=== PATIENT | female | born 1960 | race Two or more races ===

== ENCOUNTER 2018-07-15 11:35 | Outpatient (CLI) | payer BC | END 2018-07-15 23:59 | disposition home or self-care (01) | LOC: WOU 11:35 | PROVIDERS: ATTEND Surgery | DX: C50.212 Malignant neoplasm of upper-inner quadrant of left female breast (principal); I10 Essential (primary) hypertension; Z79.899 Other long term (current) drug therapy; Z80.8 Family history of malignant neoplasm of other organs or systems; E78.5 Hyperlipidemia, unspecified; Z17.0 Estrogen receptor positive status [ER+] | CPT/HCPCS: G0463 ==

== ENCOUNTER 2018-07-21 12:40 | Outpatient (CLI) | payer BC ==
[2018-07-22] MEDS ORDERED: LISI1TAB9 PO (14:17)
== END 2018-07-21 23:59 | disposition home or self-care (01) ==
LOC: WOU 12:40
PROVIDERS: ATTEND Surgery
DX: C50.212 Malignant neoplasm of upper-inner quadrant of left female breast (principal); I10 Essential (primary) hypertension; Z79.899 Other long term (current) drug therapy
CPT/HCPCS: G0463

== ENCOUNTER 2018-07-21 13:26 | Outpatient (CLI) | payer BC ==
[2018-07-22] MEDS ORDERED: HYDROMORPHONE INJ 2 MG/ML DISP.SYRIN ONE (12:56)
[2018-07-22] MEDS ORDERED: LISI1TAB9 PO (14:17)
== END 2018-07-21 23:59 | disposition home or self-care (01) ==
LOC: RAD 13:26
PROVIDERS: ATTEND Surgery
DX: C50.912 Malignant neoplasm of unspecified site of left female breast (principal)
CPT/HCPCS: 78195; A9541; J1170

== ENCOUNTER 2018-07-22 06:03 | Inpatient (IN) | payer BC ==
[~2018-07-22] VITALS: Ht 170.2 cm; Wt 127.0 kg
[2018-07-22] MEDS ORDERED: ANESTHESIA TRAY IN PYXIS 1 EA TRAY MC ONE (07:03)
[2018-07-22] MEDS ORDERED: MIDAZOLAM HCL 2 MG/2ML VIAL ONE (07:07)
[2018-07-22] MEDS ORDERED: SUCCINYLCHOLINE CHLORIDE 20 MG/ML VIAL ONE (07:07)
[2018-07-22] MEDS ORDERED: HYDROMORPHONE INJ 2 MG/ML DISP.SYRIN ONE (07:07)
[2018-07-22] MEDS ORDERED: ROCURONIUM BROMIDE 50 MG/5 ML ONE (07:08)
[2018-07-22] MEDS ORDERED: METHYLENE BLUE 10 ML VIAL ONE (07:09)
[2018-07-22] MEDS ORDERED: GENTAMICIN 80 MG/2 ML VIAL ONE (07:43)
[2018-07-22] MEDS ORDERED: CEFAZOLIN 2 GM ONE (07:43)
[2018-07-22] MEDS ORDERED: BACITRACIN 50000 UNITS/VIAL ONE (07:44)
[2018-07-22] MEDS ORDERED: NITROGLYCERIN PACKET 1 GM PACKET ONE ×2 (11:47)
[2018-07-22] MEDS ORDERED: LISI1TAB9 PO (14:17)
[2018-07-22 14:30] VITALS: BP 109/64
--- NOTE | 2018-07-22 14:30 | NUR ---
received pt from OR awake a/o x4 , able to make needs known. Family at bedside. VS are stable and within normal range , saturation 98% on O2 2L via NC. Patient s/p B/L mastectomy with [address] draining well. Received order and will put it in.
[2018-07-22] MEDS ORDERED: IV D5/0.45 NACL W/20 MEQ KCL 1L IV PRN ×4 (15:00→17:00)
[2018-07-22] MEDS: MORPHINE SULFATE INJ 2 MG/ML DISP.SYRIN IV PRN ×3 (15:09→20:06)
[2018-07-22 16:34] VITALS: BP 109/60
[2018-07-22] MEDS: oxyCODONE/APAP (5/325 MG) 1 UDTAB TABLET PO PRN ×2 (18:14→22:26)
--- NOTE | 2018-07-22 19:30 | NUR ---
RECEIVED PATIENT IN BED AWAKE. AO X 3, ABLE TO MAKE NEEDS KNOWN. NO ACUTE DISTRESS NOTED. MONITORED FOR PAIN. IV SITE PATENT, INTACT; IVF INFUSING ORDERED. BILATERAL MASTECTOMY INCISIONS INTACT WITH 3 ADEN DRAINS INTACT; DRAINING SANGUINOUS FLUID. SAFETY REMINDERS GIVEN. ON LOW BED WITH BILATERAL UPPER SIDE RAILS UP. CALL MARSHALL WITHIN EASY REACH. WILL CONTINUE TO MONITOR. Addendum: 07/23/18 at 0403 by CY ODONNELL RN MCKOY CATH PATENT, INTACT; DRAINING CLEAR GREEN URINE.
[2018-07-22 20:00] VITALS: BP 106/55
[2018-07-22] MEDS: ANCEF 1 GM/50 ML D5W IV SCH ×2 (20:28)
[2018-07-23] MEDS: MORPHINE SULFATE INJ 2 MG/ML DISP.SYRIN IV PRN ×4 (01:52→19:53)
[2018-07-23] MEDS: ANCEF 1 GM/50 ML D5W IV SCH ×6 (04:20→19:57)
--- NOTE | 2018-07-23 06:00 | NUR ---
PATIENT ASLEEP, EASILY AROUSABLE. RESPIRATIONS EVEN. NO SIGNS OF PAIN NOTED. DUE MEDS GIVEN WITH NO ASE NOTED. IVF INFUSING ORDERED. NEEDS ATTENDED. KEPT CLEAN, DRY AND COMFORTABLE. WILL GIVE REPORT TO DAY SHIFT FOR CONTINUITY OF CARE.
[2018-07-23] MEDS: oxyCODONE/APAP (5/325 MG) 1 UDTAB TABLET PO PRN ×3 (07:15→20:37)
[2018-07-23 08:00] VITALS: BP 109/62
[2018-07-23] MEDS ORDERED: Medication Not On Formulary EA (Lisinopril/Hydrochlorothiazide (Lisinopril-Hctz 10-12.5 PO SCH (09:00)
[2018-07-23] MEDS: HYDROCHLOROTHIAZIDE 25 MG TABLET PO SCH (09:00)
[2018-07-23] MEDS: DOCUSATE SODIUM 100 MG CAPSULE PO SCH ×2 (09:04→18:04)
[2018-07-23] MEDS: LISINOPRIL (10MG) 10 MG TABLET PO SCH (09:04)
--- NOTE | 2018-07-23 10:00 | NUR ---
ADEN OUTPUT 175 ML FROM ALL 3
--- NOTE | 2018-07-23 14:30 | NUR ---
A NEW IV LINE TO THE RIGHT HAND G22 , FLUSHING WELL. RIGHT WRIST 20 REMOVED DUE TO LEAKING
[2018-07-23 16:00] VITALS: BP 107/69
--- NOTE | 2018-07-23 18:57 | NUR ---
PATIENT WALKING IN HALLWAY WITH ASSISTANCE. TOLERATES PAIN AT THIS TIME .
--- NOTE | 2018-07-23 19:41 | NUR ---
patient A/Ox4 , on room air saturating well. VS are stable , no complain of pain at this time. All needs attended, pain med given. Family at bedside. Will endorse to next shift for BREANNE.
[2018-07-23 20:00] VITALS: BP 122/70
--- NOTE | 2018-07-23 20:00 | NUR ---
MS RN NOTES RECEIVED PATIENT AWAKE IN BED WITH NO DISTRESS NOTED. CALL LIGHT WITHIN REACH. FAMILY AT BEDSIDE. ADEN DRAINS INTACT, PATENT, AND DRAINED 125ML SEROSANGUINEOUS OUTPUT. INCISIONS UNDER BILATERAL BREAST INTACT WITH NO ACTIVE BLEEDING NOTED. NO FURTHER C/O PAIN OR DISCOMFORT. PERIPHERAL LINE INTACT AND PATENT. BED IN LOW LOCK SETTING. ROOM FREE OF CLUTTER AND BELONGINGS KEPT NEAR BEDSIDE. WILL CONTINUE TO MONITOR.
[2018-07-24] MEDS: MORPHINE SULFATE INJ 2 MG/ML DISP.SYRIN IV PRN (00:37)
[2018-07-24] MEDS: ANCEF 1 GM/50 ML D5W IV SCH ×2 (04:38)
--- NOTE | 2018-07-24 06:24 | NUR ---
MS RN NOTES RECEIVED PATIENT AWAKE IN BED WITH NO DISTRESS NOTED. CALL LIGHT WITHIN REACH. AT BEDSIDE. ALL DUE MEDS GIVEN ORDERED WITH NO ASE NOTED. NO FURTHER C/O PAIN OR DISCOMFORT. INCISIONS UNDER BILATERAL BREAST INTACT WITH NO ACTIVE BLEEDING NOTED. ADEN DRAINS INTACT, PATENT, AND DRAINED ANOTHER 125ML SEROSANGUINEOUS OUTPUT. PERIPHERAL LINE INTACT AND PATENT. PATIENT NOTED WITH X1 SMALL AMOUNT SOFT FORMED BROWN BM. BED IN LOW LOCK SETTING. ROOM FREE OF CLUTTER AND BELONGINGS KEPT NEAR BEDSIDE. WILL CONTINUE TO MONITOR.
--- NOTE | 2018-07-24 07:15 | NUR ---
MS/RN OPENING NOTES THE PATIENT IS RECEIVED SITTING IN A CHAIR. ALERT AND ORIENTED X4. IN ROOM AIR AND DENIES SOB. RESPIRATION REGULAR AND UNLABORED. DENIES PAIN AT THIS TIME. BILAERAL BREAST INCISION WITH NO SIGNS OF INFECTION AND NO BLEEDING OR DISCHARGE. ADEN DRAINS INTACT, PATENT AND DRAINING SEROSANGUINEOUS FLUID.RFA G 22 PATENT AND SALINE LOCKED. CALL LIGHT WITHIN REACH. IN THE ROOM. WILL CONTINUE TO MONITOR.
[2018-07-24 08:00] VITALS: BP 135/70
[2018-07-24] MEDS: DOCUSATE SODIUM 100 MG CAPSULE PO SCH (08:08)
[2018-07-24 08:09] VITALS: BP 135/70
[2018-07-24] MEDS: LISINOPRIL (10MG) 10 MG TABLET PO SCH (08:09)
[2018-07-24] MEDS: HYDROCHLOROTHIAZIDE 25 MG TABLET PO SCH (08:09)
[2018-07-24] MEDS: oxyCODONE/APAP (5/325 MG) 1 UDTAB TABLET PO PRN (08:10)
--- NOTE | 2018-07-24 09:11 | NUR ---
MS/RN NOTE THE PATIENT ALERT AND ORIENTED X4. DENIES PAIN. RESPIRATION REGULAR AND UNLABORED. PATIENT IN ROOM AIR AND OXYGEN SATURATION IS AT 98%. DISCHARGE EDUCATION IS PROVIDED TO THE PATIENT AND SHE VERBALIZED UNDERSTANDING. PRESCRIPTION HANDED TO THE PATIENT. THE PATIENT IS OFFERED MD CONTACT, HOWEVER, THE PATIENT STATED THAT SHE ALREADY HAS MD INFORMATION. PATIENT IS IN STABLE CONDITION AND GETTING PICKED UP BY .
== END 2018-07-24 09:59 | disposition home or self-care (01) | DRG 580 ==
LOC: DS 06:03 → MEDSG2 14:12
PROVIDERS: ADMIT Surgery; ATTEND Surgery
PROC: 07B60ZZ Excision of Left Axillary Lymphatic, Open Approach (ICD-10-PCS; principal; 2018-07-22)
PROC: 0HTV0ZZ Resection of Bilateral Breast, Open Approach (ICD-10-PCS; principal; 2018-07-22)
PROC: 0HBX0ZX Excision of Left Nipple, Open Approach, Diagnostic (ICD-10-PCS; principal; 2018-07-22)
PROC: 0HBW0ZX Excision of Right Nipple, Open Approach, Diagnostic (ICD-10-PCS; principal; 2018-07-22)
PROC: 0HB5XZX Excision of Chest Skin, External Approach, Diagnostic (ICD-10-PCS; principal; 2018-07-22)
PROC: 0HHV0NZ Insertion of Tissue Expander into Bilateral Breast, Open Approach (ICD-10-PCS; principal; 2018-07-22)
DX: D05.12 Intraductal carcinoma in situ of left breast (principal); C77.3 Secondary and unspecified malignant neoplasm of axilla and upper limb lymph nodes; Z17.0 Estrogen receptor positive status [ER+]; E78.5 Hyperlipidemia, unspecified; I10 Essential (primary) hypertension
CPT/HCPCS: 87081-TC; 88305-TC; 88307-TC; 88309-TC; 88331-TC; 88342; G0378; J0330; J0690; J1100; J1170; J1580; J2250; J2270; J2405; J2704; J2765; J3480; J3490; J7060; Q9968

== ENCOUNTER 2018-07-29 10:50 | Outpatient (CLI) | payer BC ==
[~2018-07-29 10:50] MED LIST: LISI1TAB9 PO
== END 2018-07-29 23:59 | disposition home or self-care (01) ==
LOC: WOU 10:50
PROVIDERS: ATTEND Surgery
DX: Z48.3 Aftercare following surgery for neoplasm (principal); C50.812 Malignant neoplasm of overlapping sites of left female breast; C77.3 Secondary and unspecified malignant neoplasm of axilla and upper limb lymph nodes; Z17.0 Estrogen receptor positive status [ER+]; I10 Essential (primary) hypertension; E78.5 Hyperlipidemia, unspecified; Z80.9 Family history of malignant neoplasm, unspecified
CPT/HCPCS: 99214; A6402; G0463

== ENCOUNTER 2018-08-05 11:15 | Outpatient (CLI) ==
[2018-08-05 14:47] LABS: BASOPHILS # (AUTO) 0.1 /CMM (0.0-0.2); BASOPHILS % (AUTO) 0.7 % (0.0-2.0); EOSINOPHILS % (AUTO) 2.8 % (0.0-6.0); HEMATOCRIT 37 % (33-45); HEMOGLOBIN 12.4 g/dL (11.5-14.8); LYMPHOCYTES # (AUTO) 2.6 /CMM (0.8-4.8); LYMPHOCYTES % (AUTO) 27.2 % (20.0-44.0); MEAN CORPUSCULAR HGB CONC 34 g/dl (31.0-36.0); MEAN CORPUSCULAR VOLUME 84 fL (82-100); MONOCYTES # (AUTO) 0.6 /CMM (0.1-1.30); MONOCYTES % (AUTO) 6.8 % (2.0-12.0); NEUTROPHILS # (AUTO) 5.9 /CMM (1.8-8.9); NEUTROPHILS % (AUTO) 62.5 % (43.0-81.0); PLATELET COUNT (AUTO) 420 /CMM (150-450); RED BLOOD CELL COUNT(AUTO) 4.36 MIL/uL (4.0-5.2); WHITE BLOOD COUNT (AUTO) 9.4 K/uL (4.3-11.0)
[2018-08-05 15:01] LABS: CALCIUM, SERUM 8.7 mg/dL (8.5-10.1); CREATININE 0.8 mg/dL (0.6-1.3); POTASSIUM 3.9 mmol/L (3.5-5.1)
[2018-08-13] MEDS ORDERED: SULF1TAB48 PO (11:23)
[2018-08-13] MEDS ORDERED: CEPH-570 PO (11:23)
== END 2018-08-05 23:59 | disposition home or self-care (01) ==
LOC: WOU 11:15
PROVIDERS: ATTEND Surgery
DX: Z48.3 Aftercare following surgery for neoplasm (principal); C50.212 Malignant neoplasm of upper-inner quadrant of left female breast; Z17.0 Estrogen receptor positive status [ER+]; I10 Essential (primary) hypertension; E78.5 Hyperlipidemia, unspecified; Z90.13 Acquired absence of bilateral breasts and nipples
CPT/HCPCS: 36415; 80048-TC; 85025-TC; 85610-TC; 85730-TC; G0463

== ENCOUNTER 2018-08-11 11:00 | Outpatient (CLI) | payer BC ==
[2018-08-11] MEDS ORDERED: OXYC-162 PO (13:49)
[2018-08-13] MEDS ORDERED: CEPH-570 PO (11:23)
[2018-08-13] MEDS ORDERED: SULF1TAB48 PO (11:23)
== END 2018-08-11 23:59 | disposition home or self-care (01) ==
LOC: WOU 11:00
PROVIDERS: ATTEND Surgery
DX: T81.49XA Infection following a procedure, other surgical site, initial encounter (principal); L03.313 Cellulitis of chest wall; C50.212 Malignant neoplasm of upper-inner quadrant of left female breast; I10 Essential (primary) hypertension; L76.34 Postprocedural seroma of skin and subcutaneous tissue following other procedure; Y83.4 Other reconstructive surgery as the cause of abnormal reaction of the patient, or of later complication, without mention of misadventure at the time of the procedure; Y92.89 Other specified places as the place of occurrence of the external cause; E78.5 Hyperlipidemia, unspecified; Z90.13 Acquired absence of bilateral breasts and nipples
CPT/HCPCS: 99214; A6402 ×2; G0463

== ENCOUNTER 2018-08-11 12:15 | Inpatient (IN) | payer BC ==
[~2018-08-11] VITALS: Ht 170.2 cm; Wt 126.6 kg
--- NOTE | 2018-08-11 12:20 | NUR ---
DR HEIN AT BEDSIDE FOR EVAL.
--- NOTE | 2018-08-11 12:25 | NUR ---
IV LINE STARTED BLOOD DRAWN AND SENT TO LAB.
[2018-08-11] MEDS ORDERED: CEFTRIAXONE 1GM BAG (ER ONLY) 50 ML IV ONE (12:30)
[2018-08-11] MEDS ORDERED: VANCOMYCIN 1 GM in IV D5W 250 ML IV ONE (12:30)
--- NOTE | 2018-08-11 12:32 | NUR ---
CALLED NURSING SUP. FOR MS BED
[2018-08-11 12:36] LABS: BASOPHILS # (AUTO) 0.1 /CMM (0.0-0.2); BASOPHILS % (AUTO) 0.9 % (0.0-2.0); EOSINOPHILS % (AUTO) 2.8 % (0.0-6.0); HEMATOCRIT 36 % (33-45); HEMOGLOBIN 12.3 g/dL (11.5-14.8); LYMPHOCYTES # (AUTO) 2.8 /CMM (0.8-4.8); LYMPHOCYTES % (AUTO) 29.5 % (20.0-44.0); MEAN CORPUSCULAR HGB CONC 34 g/dl (31.0-36.0); MEAN CORPUSCULAR VOLUME 84 fL (82-100); MONOCYTES # (AUTO) 0.8 /CMM (0.1-1.30); MONOCYTES % (AUTO) 8.2 % (2.0-12.0); NEUTROPHILS # (AUTO) 5.6 /CMM (1.8-8.9); NEUTROPHILS % (AUTO) 58.6 % (43.0-81.0); PLATELET COUNT (AUTO) 424 /CMM (150-450); RED BLOOD CELL COUNT(AUTO) 4.27 MIL/uL (4.0-5.2); WHITE BLOOD COUNT (AUTO) 9.6 K/uL (4.3-11.0)
[2018-08-11 13:04] LABS: CALCIUM, SERUM 9.1 mg/dL (8.5-10.1); CARBON DIOXIDE 25 mmol/L (21-32); CHLORIDE 104 mmol/L (98-107); CREATININE 0.7 mg/dL (0.6-1.3); GLUCOSE 101 mg/dL (74-106); POTASSIUM 3.5 mmol/L (3.5-5.1); SODIUM SERUM 140 mmol/L (136-145); UREA NITROGEN, BLOOD 21 mg/dL (7-18)
[2018-08-11 13:16] LABS: ALANINE AMINOTRANSFERASE 22 U/L (12-78); ALBUMIN 3.4 g/dL (3.4-5.0); ALKALINE PHOSPHATASE 60 U/L (46-116); ASPARTATE AMINOTRANSFERASE 16 U/L (15-37); BILIRUBIN,TOTAL 0.3 mg/dL (0.2-1.0); TOTAL PROTEIN, SERUM 7.5 g/dL (6.4-8.2)
--- NOTE | 2018-08-11 13:32 | NUR ---
MS 321-1
[2018-08-11] MEDS ORDERED: OXYC-162 PO (13:49)
--- NOTE | 2018-08-11 13:59 | NUR ---
REPORT GIVEN TO JULIO CESAR JESUS FOR BREANNE.
[2018-08-11 14:20] VITALS: BP 134/77
--- NOTE | 2018-08-11 14:20 | NUR ---
MS INSURANCE APPLICATION INVESTIGATOR NOTE RECEIVED PT FROM ER VIA GURNEY. PT AMBULATED WITH STANDBY ASSIST TO BED. PT SENT IN BY W/ DX OF CELLULITIS. PT IS ALERT AND ORIENTED X4, DENIES CHEST PAIN, SOB, N/V, BREATHING IS EVEN AND UNLABORED ON ROOM AIR. PT DENIES PAIN OF ANY KIND AT THIS TIME. RIGHT WRIST #20G IV IS PATENT, CLEAN, DRY AND INTACT. WOUND DOCUMENTATION COMPLETED. VS OBTAINED. UNIT ORIENTATION PROVIDED INCLUDING USE OF CALL LIGHT SYSTEM, INFORMED TO NOT EXIT THE BED WITHOUT STAFF ASSISTANCE. BED IS LOCKED AND IN LOWEST POSITION, SIDE RAILS UP X2 CALL LIGHT AND POSSESSIONS WITHIN REACH. AWAITING ADMISSION ORDERS.
--- NOTE | 2018-08-11 14:24 | NUR ---
MS RN NOTE INFORMED , PRIMARY HOSPITALIST OF PT ARRIVAL AND PENDING ADMISSION ORDERS, AWAITING RESPONSE.
--- NOTE | 2018-08-11 14:40 | NUR ---
MS RN NOTE PER HE WILL BE UP TO ROUND SHORTLY.
[2018-08-11 16:00] VITALS: BP 134/77
--- NOTE | 2018-08-11 16:30 | NUR ---
MS RN NOTE DR. DEY AT THE BEDSIDE FOR ASSESSMENT.
--- NOTE | 2018-08-11 18:25 | NUR ---
MS RN CLOSING NOTE PT IN BED, ALERT AND ORIENTED X4, DENIES CHEST PAIN, SOB, N/V, BREATHING IS EVEN AND UNLABORED ON ROOM AIR. NO ACUTE DISTRESS NOTED AT THIS TIME. RIGHT WRIST #22G IS SALINE LOCKED WITHOUT REDNESS OR SWELLING. ALL NEEDS ATTENDED TO. AT THE BEDSIDE. BED IS LOCKED AND IN LOWEST POSITION, SIDE RAILS UP X2, CALL LIGHT AND POSSESSIONS WITHIN REACH. WILL ENDORSE TO PHYSICALLY IMPAIRED TEACHER NURSE FOR CONTINUITY OF CARE.
[2018-08-11] MEDS ORDERED: IV NS 0.9% 1,000 ML IV PRN (19:42)
--- NOTE | 2018-08-11 19:42 | NUR ---
RN OPENING NOTES RECEIVED PATIENT AWAKE, RESTING COMFORTABLY IN BED. PATIENT IS A/O X 4. FAMILY AT BEDSIDE. NO SIGNS OF RESPIRATORY DISTRESS. DENIES CHEST PAIN, SOB, N/V AT THIS TIME. IV SITE INTACT AND PATENT, LOCKED WITHOUT REDNESS OR SWELLING. DENIES ANY DISCOMFORT OR PAIN AT THIS TIME. SAFETY PRECAUTIONS IMPLEMENTED. CALL LIGHT WITHIN REACH. WILL CONTINUE TO MONITOR PATIENT THROUGHOUT THE SHIFT.
[2018-08-11] MEDS ORDERED: FEE PK DOSING 1 MIN EA MC ONE (19:57)
[2018-08-11 20:00] VITALS: BP 144/81
[2018-08-11] MEDS ORDERED: MAG HYDROX/AL HYDROX/SIMETH 30 ML UDC PO PRN (20:00)
[2018-08-11] MEDS ORDERED: ZOLPIDEM TARTRATE 5 MG TABLET PO PRN (20:00)
[2018-08-11] MEDS ORDERED: MAGNESIUM HYDROXIDE 30 ML UDC PO PRN (20:00)
[2018-08-11] MEDS ORDERED: MORPHINE SULFATE INJ 2 MG/ML DISP.SYRIN IV PRN (20:00)
[2018-08-11] MEDS ORDERED: ONDANSETRON HCL/PF 4 MG/2 ML VIAL IVP PRN (20:00)
[2018-08-11] MEDS ORDERED: oxyCODONE/APAP (5/325 MG) 1 UDTAB TABLET PO PRN (20:00)
[2018-08-11] MEDS ORDERED: Z GUARD REMEDY 2 OZ OINT TP PRN (20:00)
[2018-08-11] MEDS: PIPERACILLIN /TAZOBACTAM 3.375 G in IV D5W 50 ML IV SCH (20:13)
[2018-08-11] MEDS: VANCOMYCIN 1.25 GM in IV D5W 500 ML IV SCH (21:55)
[2018-08-11] MEDS: POLYETHYLENE GLYCOL 3350 17 GM POWD.PACK PO SCH (22:00)
--- NOTE | 2018-08-11 22:09 | NUR ---
RN NOTES PATIENT REFUSED MIRALAX SCHEDULED FOR 2200. PATIENT BELIEVES IT WILL CAUSE HER TO HAVE SEVERE DIARRHEA. EXPLAINED THE BENEFITS AND RISKS OF NOT TAKING THE MEDICATION. PATIENT STILL REFUSED MED. WILL CONTINUE TO MONITOR PATIENT THROUGHOUT THE SHIFT.
[2018-08-12] MEDS: PIPERACILLIN /TAZOBACTAM 3.375 G in IV D5W 50 ML IV SCH ×4 (02:11→20:52)
--- NOTE | 2018-08-12 04:25 | NUR ---
RN NOTES WOUND IN THE BREAST SHOWED YELLOW DISCHARGE. IRRIGATED WITH NS, PATTED DRY. DOUBLE ANTIBIOTIC OINTMENT NOT AVAILABLE ON THE FLOOR OR THE PIXIS. CHARGE NURSE AND NURSING QUARRYMAN AWARE.
[2018-08-12] MEDS: VANCOMYCIN 1.25 GM in IV D5W 500 ML IV SCH ×3 (05:20→21:59)
--- NOTE | 2018-08-12 06:21 | NUR ---
RN CLOSING NOTES PATIENT IS ASLEEP, RESTING IN BED COMFORTABLY. IS AT BEDSIDE. PATIENT IS A/O X 4 THROUGHOUT THE SHIFT. NO SIGNS OF RESPIRATORY DISTRESS. NO SIGNS OF SOB. PATIENT DENIES PAIN OR DISCOMFORT THROUGHOUT THE SHIFT. ALL NEEDS ATTENDED. PATIENT STATES SHE HAS BEEN NPO SINCE MIDNIGHT 08/12/2018. WOUND TREATMENT TO RIGHT BREAST WAS DONE. PATIENT AND ALLOWED WOUND TREATMENT TO BE DONE. SAFETY PRECAUTIONS IMPLEMENTED. CALL LIGHT WITHIN REACH. WILL ENDORSE TO AM SHIFT FOR CONTINUITY OF CARE.
[2018-08-12 06:51] LABS: BASOPHILS % (AUTO) 0.6 % (0.0-2.0); EOSINOPHILS % (AUTO) 3.6 % (0.0-6.0); HEMATOCRIT 33 % (33-45); HEMOGLOBIN 11.1 g/dL (11.5-14.8); LYMPHOCYTES # (AUTO) 1.9 /CMM (0.8-4.8); LYMPHOCYTES % (AUTO) 25.8 % (20.0-44.0); MEAN CORPUSCULAR HGB CONC 34 g/dl (31.0-36.0); MEAN CORPUSCULAR VOLUME 85 fL (82-100); MONOCYTES # (AUTO) 0.6 /CMM (0.1-1.30); MONOCYTES % (AUTO) 8.6 % (2.0-12.0); NEUTROPHILS # (AUTO) 4.5 /CMM (1.8-8.9); NEUTROPHILS % (AUTO) 61.4 % (43.0-81.0); PLATELET COUNT (AUTO) 360 /CMM (150-450); RED BLOOD CELL COUNT(AUTO) 3.85 MIL/uL (4.0-5.2); WHITE BLOOD COUNT (AUTO) 7.4 K/uL (4.3-11.0)
[2018-08-12 06:56] LABS: ALBUMIN 2.9 g/dL (3.4-5.0); BILIRUBIN,TOTAL 0.4 mg/dL (0.2-1.0); CALCIUM, SERUM 8.4 mg/dL (8.5-10.1); CREATININE 0.8 mg/dL (0.6-1.3); MAGNESIUM 1.8 mg/dL (1.8-2.4); PHOSPHORUS 4.6 mg/dL (2.5-4.9); POTASSIUM 3.8 mmol/L (3.5-5.1); TOTAL PROTEIN, SERUM 6.5 g/dL (6.4-8.2)
--- NOTE | 2018-08-12 07:00 | NUR ---
MS/RN - Assessment Patient is awake, A/O x 4, no complaints overnight, denies pain at this time, no apparent distress, afebrile, stable on room air. IVF NS at 75 ml/hr infusing well on the right wrist with no signs of infiltration. Skin is intact except for left underarm and breast surgical incision, and right breast surgical incision. Right breast incision with min drainage, still with redness and swelling but noted with improvement. Patient NPO for johnny-cath placement today. Lab results within normal range. Patient is ambulatory with steady gait. Plan of care discussed with patient and in agreement. Will continue with current medical management.
[2018-08-12] MEDS: PANTOPRAZOLE 40 MG TABLET.DR PO SCH (07:12)
[2018-08-12 08:00] VITALS: BP 138/79
[2018-08-12] MEDS: LISINOPRIL (10MG) 10 MG TABLET PO SCH ×2 (08:45→15:03)
[2018-08-12] MEDS: HYDROCHLOROTHIAZIDE 25 MG TABLET PO SCH ×2 (08:45→15:04)
[2018-08-12] MEDS: BACI/NEOM/POLY B OINT PKT 1 UDPKT PACKET TP SCH ×2 (08:46→16:24)
--- NOTE | 2018-08-12 09:30 | NUR ---
MS/RN - S/b plastic surgeon Seen and examined by Dr. Rollins, johnny-cath placement today was cancelled, resume regular diet.
--- NOTE | 2018-08-12 14:45 | NUR ---
MS/RN - S/b hospitalist Seen and examined by Dr. Murray, cellulitis has improved, will keep one more day for IV antibiotics and then discharge home tomorrow with oral antibiotics for 14 days.
[2018-08-12 16:00] VITALS: BP 151/91
--- NOTE | 2018-08-12 17:45 | NUR ---
MS/RN - End of shift summary No significant change in condition, denies pain, not in any form of distress, wound care done to right breast surgical incision, no drainage, redness and swelling improved. Saline lock on the RFA is patent, intact, with no signs of infiltration. Anticipate discharge home tomorrow if stable.
--- NOTE | 2018-08-12 19:40 | NUR ---
MS RN A/O X 3, STABLE, NO S/S OF DISTRESS, RESPIRATIONS EVEN AND UNLABORED, SAFETY MEASURES IN PLACE. WILL CONTINUE TO MONITOR
[2018-08-12 20:00] VITALS: BP 149/90
[2018-08-12] MEDS: POLYETHYLENE GLYCOL 3350 17 GM POWD.PACK PO SCH (22:00)
--- NOTE | 2018-08-12 22:00 | NUR ---
PT REFUSING MIRALAX DUE TO AT 2200 PER PT SHE IS NOT CONSTIPATED PT A/O X 4 REFUSED MED Addendum: 08/13/18 at 0435 by KARYNA KWON RN DESPITE EXPLAINING RISKS AND BENEFITS
[2018-08-13] MEDS: PIPERACILLIN /TAZOBACTAM 3.375 G in IV D5W 50 ML IV SCH ×2 (02:05→09:22)
[2018-08-13] MEDS: ACETAMINOPHEN 325 MG TABLET PO PRN ×2 (02:10→12:52)
[2018-08-13] MEDS: VANCOMYCIN 1.25 GM in IV D5W 500 ML IV SCH (05:30)
--- NOTE | 2018-08-13 06:45 | NUR ---
MS RN ASLEEP AND EASILY AWAKEN, RESPIRATION EVEN AND UNLABORED, KEPT CLEAN AND DRY AND COMFORTABLE. NEEDS ATTENDED AND ANTICIPATED, NURSING CARE RENDERED, NO COMPLAIN OF PAIN. TX ORDERED. GOOD SKIN CARE. SAFETY MEASURES AT ALL TIMES. ENDORSE TO THE NEXT SHIFT.
[2018-08-13 07:11] LABS: CALCIUM, SERUM 8.4 mg/dL (8.5-10.1); CREATININE 0.8 mg/dL (0.6-1.3); POTASSIUM 3.9 mmol/L (3.5-5.1)
--- NOTE | 2018-08-13 07:28 | NUR ---
MS RN OPENING NOTES RECEIVED PT AWAKE IN BED IN NO ACUTE SIGNS OF DISTRESS. A/O X4 AND ABLE TO MAKE NEEDS KNOWN, DENIES PAIN OR ANY DISCOMFORTS AT THIS TIME. ON ROOM AIR, RESPIRATIONS EVEN AND UNLABORED. IV HL ON RFA G #22 PATENT AND INTACT. SAFETY MEASURES IN PLACE. BED IN LOW LOCKED POSITION WITH SIDE RAILS UP X2 AND CALL LIGHT WITHIN REACH. WILL CONTINUE TO MONITOR ACCORDINGLY.
[2018-08-13] MEDS: PANTOPRAZOLE 40 MG TABLET.DR PO SCH (07:33)
[2018-08-13 08:00] VITALS: BP 140/82
[2018-08-13] MEDS: BACI/NEOM/POLY B OINT PKT 1 UDPKT PACKET TP SCH (09:22)
[2018-08-13 09:30] VITALS: BP 140/82
[2018-08-13] MEDS ORDERED: HYDROCHLOROTHIAZIDE 25 MG TABLET PO SCH (09:30)
[2018-08-13] MEDS ORDERED: LISINOPRIL (10MG) 10 MG TABLET PO SCH (09:30)
[2018-08-13] MEDS ORDERED: SULF1TAB48 PO (11:23)
[2018-08-13] MEDS ORDERED: CEPH-570 PO (11:23)
--- NOTE | 2018-08-13 13:04 | NUR ---
RELATIONSHIP EXECUTIVE NOTES PATIENT DISCHARGED HOME IN STABLE CONDITION. A/O X4 AND ABLE TO VERBALIZED NEEDS. ALL NEEDS AND CARE ATTENDED WELL. PHOTOS OF SKIN ISSUES TAKEN AND FILED ON CHART. V/S TAKEN AND RECORDED. ALL BELONGINGS, CHECKED, COUNTED AND SIGNED FORM. IV ACCESS REMOVED WITH NO BLEEDING NOTED. NAM,E ARMBAND REMOVED. HEALTH TEACHINGS/DISCHARGE INSTRUCTIONS GIVEN TO PT AND VERBALIZED UNDERSTANDING. PT LEFT UNIT AT 1255 AMBULATORY ACCOMPANIED BY . MD AND CHARGE NURSE AWARE OF DISCHARGE.
== END 2018-08-13 13:00 | disposition home or self-care (01) | DRG 920 ==
LOC: ER 12:15 → MED 13:57
PROVIDERS: ADMIT Nurse Practitioner Acute Care; ATTEND Nurse Practitioner Acute Care
DX: T81.31XA Disruption of external operation (surgical) wound, not elsewhere classified, initial encounter (principal); L03.313 Cellulitis of chest wall; Z85.3 Personal history of malignant neoplasm of breast; Z90.13 Acquired absence of bilateral breasts and nipples; Y83.8 Other surgical procedures as the cause of abnormal reaction of the patient, or of later complication, without mention of misadventure at the time of the procedure; Y92.009 Unspecified place in unspecified non-institutional (private) residence as the place of occurrence of the external cause; I10 Essential (primary) hypertension
CPT/HCPCS: 36415; 71045-TC; 80048-TC; 80053-TC; 80061-TC; 80076-TC; 80202-TC; 83605-TC; 83735-TC; 84100-TC; 84484-TC; 85025-TC; 85730-TC; 86850-TC; 87040-TC; 87081-TC; A6402; A6403; G0378; J2543; J3370; J7030; J7060

== ENCOUNTER 2018-08-16 09:41 | Day surgery (SDC) | payer BC ==
[~2018-08-16] VITALS: Ht 170.2 cm; Wt 129.3 kg
[2018-08-16] VITALS (7 sets, daily range): BP systolic 120–142; BP diastolic 65–89
[~2018-08-16 09:41] MED LIST changes: +CEFTRIAXONE 1GM BAG (ER ONLY) 50 ML IV ONE; +CEPH-570 PO; +OXYC-162 PO; +SULF1TAB48 PO
[2018-08-16] MEDS ORDERED: SULF1TAB48 PO (10:48)
[2018-08-16] MEDS ORDERED: CEPH-570 PO (10:48)
[2018-08-16] MEDS ORDERED: HYDROMORPHONE INJ 2 MG/ML DISP.SYRIN ONE (12:13)
[2018-08-16] MEDS ORDERED: LIDOCAINE HCL/PF 1% 30 ML SDV ONE (12:34)
[2018-08-16] MEDS ORDERED: SEVOFLURANE 250 ML BOTTLE IH ONE (13:00)
== END 2018-08-16 16:00 | disposition home or self-care (01) ==
LOC: DS 09:41 → UNDOADMIN 09:43 → MED 09:43 → UNDODISIN 15:56 → DS 16:00
PROVIDERS: ATTEND Surgery
DX: C50.412 Malignant neoplasm of upper-outer quadrant of left female breast (principal); T81.30XA Disruption of wound, unspecified, initial encounter; N61.0 Mastitis without abscess; Z82.49 Family history of ischemic heart disease and other diseases of the circulatory system; Z80.9 Family history of malignant neoplasm, unspecified; J45.909 Unspecified asthma, uncomplicated; I10 Essential (primary) hypertension; E78.5 Hyperlipidemia, unspecified; Y83.4 Other reconstructive surgery as the cause of abnormal reaction of the patient, or of later complication, without mention of misadventure at the time of the procedure; Z90.11 Acquired absence of right breast and nipple; Z79.899 Other long term (current) drug therapy
CPT/HCPCS: 19380; 36561; 71045 ×2; C1788; J0690; J0696; J1100; J1644; J2405; J2704; J2765; J3490 ×2; G0378; J1170

== ENCOUNTER 2018-08-18 10:41 | Outpatient (CLI) | payer BC ==
[~2018-08-18 10:41] MED LIST changes: -CEFTRIAXONE 1GM BAG (ER ONLY) 50 ML IV ONE; -OXYC-162 PO
== END 2018-08-18 23:59 | disposition home or self-care (01) ==
LOC: WOU 10:41
PROVIDERS: ATTEND Surgery
DX: T81.31XD Disruption of external operation (surgical) wound, not elsewhere classified, subsequent encounter (principal); T81.49XD Infection following a procedure, other surgical site, subsequent encounter; N61.0 Mastitis without abscess; L03.313 Cellulitis of chest wall; I10 Essential (primary) hypertension; C50.212 Malignant neoplasm of upper-inner quadrant of left female breast; Z17.0 Estrogen receptor positive status [ER+]
CPT/HCPCS: 99214; A6402; G0463

== ENCOUNTER 2018-08-23 12:50 | Outpatient (CLI) | payer BC | END 2018-08-23 23:59 | disposition home or self-care (01) | LOC: WOU 12:50 | PROVIDERS: ATTEND Surgery | DX: T81.49XD Infection following a procedure, other surgical site, subsequent encounter (principal); L03.313 Cellulitis of chest wall; C50.212 Malignant neoplasm of upper-inner quadrant of left female breast; Z17.0 Estrogen receptor positive status [ER+]; I10 Essential (primary) hypertension | CPT/HCPCS: G0463 ==

== ENCOUNTER 2018-08-30 11:00 | Outpatient (CLI) | payer BC | END 2018-08-30 23:59 | disposition home or self-care (01) | LOC: WOU 11:00 | PROVIDERS: ATTEND Surgery | DX: L03.313 Cellulitis of chest wall (principal); C50.212 Malignant neoplasm of upper-inner quadrant of left female breast; Z17.0 Estrogen receptor positive status [ER+]; I10 Essential (primary) hypertension; Z90.13 Acquired absence of bilateral breasts and nipples | CPT/HCPCS: G0463 ==

== ENCOUNTER 2018-09-20 10:35 | Outpatient (CLI) | payer BC | END 2018-09-20 23:59 | disposition home or self-care (01) | LOC: WOU 10:35 | PROVIDERS: ATTEND Surgery | DX: Z51.89 Encounter for other specified aftercare (principal); Z87.2 Personal history of diseases of the skin and subcutaneous tissue; C50.212 Malignant neoplasm of upper-inner quadrant of left female breast; Z17.0 Estrogen receptor positive status [ER+]; I10 Essential (primary) hypertension; Z90.13 Acquired absence of bilateral breasts and nipples | CPT/HCPCS: G0463 ==

== ENCOUNTER 2018-11-04 11:00 | Outpatient (CLI) | payer BC ==
[~2018-11-04 11:00] MED LIST changes: +LISI1TAB32 PO; -LISI1TAB9 PO
== END 2018-11-04 23:59 | disposition home or self-care (01) ==
LOC: WOU 11:00
PROVIDERS: ATTEND Surgery
DX: Z48.3 Aftercare following surgery for neoplasm (principal); C50.912 Malignant neoplasm of unspecified site of left female breast; Z17.0 Estrogen receptor positive status [ER+]; Z90.13 Acquired absence of bilateral breasts and nipples; I10 Essential (primary) hypertension; Z80.9 Family history of malignant neoplasm, unspecified; Z79.899 Other long term (current) drug therapy
CPT/HCPCS: G0463

== ENCOUNTER 2018-12-16 11:55 | Outpatient (CLI) | payer BC | END 2018-12-16 23:59 | disposition home or self-care (01) | LOC: WOU 11:55 | PROVIDERS: ATTEND Surgery | DX: Z48.3 Aftercare following surgery for neoplasm (principal); C50.212 Malignant neoplasm of upper-inner quadrant of left female breast; Z17.0 Estrogen receptor positive status [ER+]; I10 Essential (primary) hypertension; I89.0 Lymphedema, not elsewhere classified; Z90.13 Acquired absence of bilateral breasts and nipples | CPT/HCPCS: G0463 ==

== ENCOUNTER 2019-01-06 05:35 | Day surgery (SDC) | payer BC ==
[~2019-01-06] VITALS: Ht 170.2 cm; Wt 142.9 kg
--- NOTE | 2019-01-06 06:29 | NUR ---
RN MS NOTES RECEIVED PT AMBULATORY, GAYLE DAY SURGERY. A/OX4. BREATHING EVEN AND UNLABORED ON ROOM AIR. NO COMPLAINT OF PAINT OR DISCOMFORT AT THIS TIME. NO IV ACCESS, TO BE DONE IN OR. BED IN LOWEST LOCKED POSITION, CONSENTS SIGNED, CHECKLIST COMPLETED. WILL CONTINUE TO MONITOR
[2019-01-06 06:53] VITALS: BP 133/77
[2019-01-06] MEDS ORDERED: ANESTHESIA TRAY IN PYXIS 1 EA TRAY MC ONE (07:04)
[2019-01-06] MEDS ORDERED: HYDROMORPHONE INJ 2 MG/ML DISP.SYRIN ONE (07:22)
[2019-01-06] MEDS ORDERED: ROCURONIUM BROMIDE 50 MG/5 ML ONE (07:22)
--- NOTE | 2019-01-06 07:30 | NUR ---
PATIENT PICKED UP BY OR STAFF FOR SURGERY
[2019-01-06] MEDS ORDERED: MIDAZOLAM HCL 2 MG/2ML VIAL ONE (07:37)
[2019-01-06] MEDS ORDERED: BACITRACIN 50000 UNITS/VIAL ONE (08:24)
[2019-01-06] MEDS ORDERED: oxyCODONE/APAP (5/325 MG) 1 UDTAB TABLET PO PRN (11:00)
--- NOTE | 2019-01-06 11:00 | NUR ---
PATIENT BACK FROM SURGERY. AWAKE A/O X3 , AT BEDSIDE. VS ARE STABLE AND WITHIN BASE LINE. PATIENT COMPLAINS OF PAIN 8/10. WILL ADMINISTRATE PAIN MEDICATION. POST OP ORDERS NOTED AND IMPLEMENTED.CLEAR LIQUID DIET ORDERED; WILL ADVANCE TOLERATED. PATIENT TO BE D/C TODAY PER . WILL CONTINUE TO MONITOR
[2019-01-06] MEDS ORDERED: OMEP20CA15 PO (11:25)
[2019-01-06] MEDS ORDERED: ZOLP5TAB2 PO (11:25)
[2019-01-06] MEDS ORDERED: HYDR12.5 PO (11:25)
[2019-01-06 11:31] VITALS: BP 104/57
--- NOTE | 2019-01-06 12:00 | NUR ---
PATIENT TOLERATED DIET WELL.NO N/V , PAIN CONTROLLED WITH PRESCRIBED PAIN MED.PATIENT WANTS TO LEAVE AT 1400.
--- NOTE | 2019-01-06 14:00 | NUR ---
PATIENT CLEARED FOR D/C BY . PATIENT A/O X4 AND VS ARE STABLE AND WITHIN BASELINE, ON ROOM AIR. D/C INSTRUCTIONS AND EDUCATION PROVIDED, PATIENT VERBALIZED UNDERSTANDING . ALL NEEDS ATTENDED PRIOR D/C. PATIENT HAS NO BELONGINGS. IV LINE REMOVED , ID WRIST BAND REMOVED. PATIENT SAFELY TRANSFERRED TO [facility] VIA WHEELCHAIR ACCOMPANIED BY AND METAL CUTTER.
== END 2019-01-06 16:00 | disposition home or self-care (01) ==
LOC: DS 05:35 → UNDOADMIN 05:36 → MED 05:36 → UNDODISIN 14:15 → DS 16:00
PROVIDERS: ATTEND Surgery
DX: C50.412 Malignant neoplasm of upper-outer quadrant of left female breast (principal); J45.909 Unspecified asthma, uncomplicated; I10 Essential (primary) hypertension; E78.5 Hyperlipidemia, unspecified; E66.01 Morbid (severe) obesity due to excess calories; D64.9 Anemia, unspecified; Z82.49 Family history of ischemic heart disease and other diseases of the circulatory system; Z79.899 Other long term (current) drug therapy
CPT/HCPCS: 11970; 19380; 87081; 88300; J0690; J1100; J1885; J2250; J2370; J2405; J2704; J2710; J3490 ×2; L8600; G0378; J1170

== ENCOUNTER 2019-01-13 11:50 | Outpatient (CLI) | payer BC ==
[~2019-01-13 11:50] MED LIST changes: +HYDR12.5 PO; +OMEP20CA11 PO; +ZOLP5TAB2 PO
== END 2019-01-13 23:59 | disposition home or self-care (01) ==
LOC: WOU 11:50
PROVIDERS: ATTEND Surgery
DX: Z48.3 Aftercare following surgery for neoplasm (principal); C50.212 Malignant neoplasm of upper-inner quadrant of left female breast; Z17.0 Estrogen receptor positive status [ER+]; Z90.13 Acquired absence of bilateral breasts and nipples; I89.0 Lymphedema, not elsewhere classified; I10 Essential (primary) hypertension; Z79.899 Other long term (current) drug therapy
CPT/HCPCS: G0463

== ENCOUNTER 2019-01-27 11:15 | Outpatient (CLI) | payer BC ==
[~2019-01-27 11:15] MED LIST changes: -OMEP20CA11 PO; +OMEP20CA15 PO
== END 2019-01-27 23:59 | disposition home or self-care (01) ==
LOC: WOU 11:15
PROVIDERS: ATTEND Surgery
DX: Z48.3 Aftercare following surgery for neoplasm (principal); C50.212 Malignant neoplasm of upper-inner quadrant of left female breast; Z17.0 Estrogen receptor positive status [ER+]; Z92.21 Personal history of antineoplastic chemotherapy; Z90.13 Acquired absence of bilateral breasts and nipples; I89.0 Lymphedema, not elsewhere classified; I10 Essential (primary) hypertension
CPT/HCPCS: G0463

== ENCOUNTER 2019-04-28 10:30 | Outpatient (CLI) | payer BC | END 2019-04-28 23:59 | disposition home or self-care (01) | LOC: WOU 10:30 | PROVIDERS: ATTEND Surgery | DX: I97.2 Postmastectomy lymphedema syndrome (principal); Z85.3 Personal history of malignant neoplasm of breast; Z90.13 Acquired absence of bilateral breasts and nipples; I10 Essential (primary) hypertension; N64.89 Other specified disorders of breast; Z92.3 Personal history of irradiation | CPT/HCPCS: G0463 ==

== ENCOUNTER 2019-08-04 11:45 | Outpatient (CLI) | payer BC | END 2019-08-04 23:59 | disposition home or self-care (01) | LOC: WOU 11:45 | PROVIDERS: ATTEND Surgery | DX: I97.2 Postmastectomy lymphedema syndrome (principal); N64.89 Other specified disorders of breast; Z90.13 Acquired absence of bilateral breasts and nipples; Z85.3 Personal history of malignant neoplasm of breast; I10 Essential (primary) hypertension; Z92.3 Personal history of irradiation; Z92.21 Personal history of antineoplastic chemotherapy | CPT/HCPCS: G0463 ==

== ENCOUNTER 2019-09-08 11:50 | Outpatient (CLI) | payer BC | END 2019-09-08 23:59 | disposition home or self-care (01) | LOC: WOU 11:50 | PROVIDERS: ATTEND Surgery | DX: Z45.2 Encounter for adjustment and management of vascular access device (principal); I89.0 Lymphedema, not elsewhere classified; N65.1 Disproportion of reconstructed breast; I10 Essential (primary) hypertension; Z85.3 Personal history of malignant neoplasm of breast; Z92.21 Personal history of antineoplastic chemotherapy; Z92.3 Personal history of irradiation; Z98.82 Breast implant status | CPT/HCPCS: 36590; J3490; 88300-TC ==

== ENCOUNTER 2020-09-06 10:45 | Outpatient (CLI) | payer BC | END 2020-09-06 23:59 | disposition home or self-care (01) | LOC: WOU 10:45 | PROVIDERS: ATTEND Surgery | DX: Z09 Encounter for follow-up examination after completed treatment for conditions other than malignant neoplasm (principal); Z85.3 Personal history of malignant neoplasm of breast; I10 Essential (primary) hypertension | CPT/HCPCS: G0463 ==